=== PATIENT | male | born 1960 | race Caucasian/White ===

== ENCOUNTER 2017-02-13 08:23 | Inpatient (IN) | payer OTHER, SELFPAY ==
[2017-02-04 11:22] LABS: HEMATOCRIT 44.2 % (40.0-51.0); HEMOGLOBIN 14.9 g/dL (13.6-17.8)
[2017-02-04 11:30] LABS: ASCORBIC ACID (UR NOT ORDER) NEG (NEG); BILIRUBIN, URINE NEGATIVE (NEG); KETONE, URINE NEGATIVE (NEG); LEUKOCYTE ESTERASE(NOT OR NEG (NEG); WBC (NOT ORDERED) (RFLEX) 1 (0-5)
[2017-02-04 11:35] LABS: CALCIUM, SERUM 8.3 MG/DL (8.5-10.4); CHLORIDE, SERUM 108 MMOL/L (96-112); CO2 (CARBON DIOXIDE) 29 MMOL/L (24-34); CREATININE 0.78 MG/DL (0.70-1.30); GFR AFRICAN AMERICAN 116 ML/MIN (>=60); GFR NON AFRICAN AMERICAN 100 ML/MIN (>=60); GLUCOSE, SERUM 89 MG/DL (60-99); SODIUM, SERUM 143 MMOL/L (135-148)
[2017-02-04 11:36] LABS: BUN (BLOOD UREA NITROGEN) 10 MG/DL (6-23)
--- NOTE | ~2017-02-13 | OP ---
Record Of Operation [facility] [address] [place]. [address] NAME: SANDRA MESA : 58 STATUS : ADM IN PAT#: [id number] AGE: 56 ADM/REG DATE : 02/13/17 MR#: [id number] REPORT SERV DATE: 02/13/17 DICTATED BY: OFELIA MARTINEZ DATE: 02/13/17 REPORT STATUS : Draft TRANSCRIBED BY: MODL DATE: 02/13/17 DATE OF PROCEDURE: 02/13/2017 SURGEON: Ofelia Martinez MD TITLE OF OPERATION: Robot-assisted laparoscopic simple prostatectomy. PREOPERATIVE DIAGNOSIS: Benign prostatic hyperplasia with obstruction. POSTOPERATIVE DIAGNOSIS: Benign prostatic hyperplasia with obstruction. INDICATIONS: Mr. Mesa is a 56-year-old male, with a massively enlarged prostate greater than 100 g. He has symptomatic BPH. He is here for simple prostatectomy. ANESTHESIA: General. COMPLICATIONS: None. IMPLANTS: 1. 24-Romanian 3-way Maria catheter. 2. #10 DINORA drain. SPECIMENS: Prostate adenoma for analysis. NARRATIVE: The patient was brought to the operating room, identified by his wristband. General anesthesia was induced and Ancef was given for preoperative antibiotics. He was placed in dorsal lithotomy position, and prepped and draped in sterile fashion. His abdomen was insufflated to a pressure of 15 mmHg using a Veress needle. A 5 mm port was placed in a supraumbilical position under direct vision. The abdomen was inspected. There were no adhesions or abnormalities. Two 5 mm ports were placed in the left side of the body, and a third 4 to 5 mm port was placed in the right side of the body. A 12 mm port was placed in the right lower quadrant. A 5 mm port was placed in the right upper quadrant for sales support assistant ports. The patient was placed in Trendelenburg. The robot was docked. I dropped the bladder off the anterior abdominal wall using electrocautery. The prostate was sharply divided with bipolar cautery and scissors. A horizontal cystotomy was made in the bladder. A large intravesical prostatic adenoma was identified. A 2-0 Vicryl was placed through this adenoma as a marking stitch. The mucosa was scored above the trigone on the adenoma through the detrusor muscle onto the prostatic tissue. The dissection was carried down to the junction of the peripheral and transitional zones. This was then carried from the base of the prostate down to the apex. The prostatic adenoma was then circumferentially dissected free from the capsule laterally and anteriorly. The urethra was identified and sharply incised. The adenoma was then removed from the capsule and placed into an EndoCatch bag. Small bleeders were controlled with electrocautery. Using a 3-0 V-Loc suture, the bladder mucosa was advanced into the prostatic fossa. A second 3-0 V-Loc suture was used to oversew the dorsal venous penetrators on the anterior surface of the capsule. A 24-Romanian 3-way Maria catheter was placed into the bladder. The cystotomy was closed in two layers. The Record Of Operation [facility] [address] [place]. [address] NAME: SANDRA MESA : 58 STATUS : ADM IN [facility]#: [id number] AGE: 56 ADM/REG DATE : 02/13/17 MR#: [id number] REPORT SERV DATE: 02/13/17 DICTATED BY: OFELIA MARTINEZ DATE: 02/13/17 REPORT STATUS : Draft TRANSCRIBED BY: DIPIKA DATE: 02/13/17 first layer was with a 3-0 V-Loc suture, the second layer with a 2-0 V-Loc suture. 40 mL were placed in the Maria balloon. The bladder was irrigated. There was no leakage. The catheter was placed on traction and CBI was initiated. The robot was undocked. The ports were removed sequentially. The sales support assistant port was closed with 0 Vicryl suture using a Bear-Ivan device. A #10 DINORA drain was placed through the lateral most left robotic port. The skin and fascia were incised on the supraumbilical port. The prostatic adenoma and the EndoCatch bag was removed from the body and sent to Pathology. The fascia was closed with an interrupted 0 Monocryl suture in a [id number] fashion. The wounds were irrigated clear. The subcutaneous tissues were closed with interrupted 3-0 Vicryl suture. The skin was closed with 4-0 Monocryl suture. Dermabond dressing was placed. A TAP block was placed preoperatively. The patient was then transferred to the recovery room in stable condition. There were no complications. EDUARDO/DIPIKA Ofelia Martinez MD / [id number] CC: MD ROBERTO Fleming PAUL E
--- NOTE | ~2017-02-13 | DS ---
Discharge Summary [facility] [address] [place]. [address] NAME: SANDRA MESA : 58 STATUS : DIS IN PAT#: [id number] AGE: 56 ADM/REG DATE : 02/13/17 MR#: [id number] REPORT SERV DATE: 03/01/17 DICTATED BY: OFELIA MARTINEZ DATE: 02/28/17 REPORT STATUS : Draft TRANSCRIBED BY: MODL DATE: 02/28/17 ADMISSION DATE: 02/13/2017 DISCHARGE DATE: 02/21/2017 DISCHARGE DIAGNOSES: 1. Benign prostatic hypertrophy with obstruction. 2. History of mechanical heart valve. PROCEDURE: Robot-assisted laparoscopic simple prostatectomy. HOSPITAL COURSE: Mr. Mesa is a very pleasant 56-year-old male with BPH with obstruction and prostate greater than 100 g. On the day of admission, he underwent the above-mentioned operation. The operation was tolerated well with no major complications. For full details, see my operative note. Postoperatively, he was transferred to the recovery room and to the floor in stable condition. During his hospitalization, he remained afebrile and his vital signs remained within normal limits. His urine was initially red and he was maintained on CBI. This was weaned to clear. A heparin drip was started on him for his mechanical heart valve on postoperative day #2, as was Coumadin. He was kept in the hospital with heparin and Coumadin until his Coumadin level was therapeutic. The Maria catheter was removed. He was able to void. His urine was pink. He was then deemed medically fit for home, was discharged to home. Prior to discharging home, his pain was well controlled and he had a bowel movement. DISCHARGE MEDICATIONS: Please see discharge medication worksheet. DISCHARGE INSTRUCTIONS: Please see my preprinted discharge instructions. FOLLOWUP: Please follow up with me next week for an INR check. EDUARDO/DIPIKA Ofelia Martinez MD / [id number] CC: MD ROBERTO Fleming PAUL E
--- NOTE | ~2017-02-13 | HP ---
History And Physical [facility] [id number] [place]. [address] NAME: SANDRA MESA : 58 STATUS : DIS IN [facility]#: [id number] AGE: 56 ADM/REG DATE : 02/13/17 MR#: [id number] REPORT SERV DATE: 02/28/17 DICTATED BY: OFELIA MARTINEZ DATE: 02/28/17 REPORT STATUS : Draft TRANSCRIBED BY: MODL DATE: 02/28/17 DATE OF ADMISSION: 02/13/2017 CHIEF COMPLAINT: Obstructive lower urinary tract symptoms. HISTORY OF PRESENT ILLNESS: Mr. Mesa is a very pleasant 56-year-old male with a history of BPH with obstruction with a very enlarged prostate with large intravesical portion. He underwent cystoscopy in the clinic and was found to have a very large intravesical portion of his prostate. I then saw him and recommended a robotic-assisted laparoscopic simple prostatectomy. He presented to the hospital today for this operation. PAST MEDICAL HISTORY: Hypertension, hypercholesterolemia, history of stroke, history of mechanical heart valve. PAST SURGICAL HISTORY: Placement of mechanical heart valve. FAMILY HISTORY: Positive for kidney stones. SOCIAL HISTORY: He is a social drinker. He does not smoke or use illegal drugs. ALLERGIES: PENICILLIN. MEDICATIONS: Reviewed and listed in the chart. REVIEW OF SYSTEMS: A 12-point review of systems was performed. Pertinent positives listed in the HPI. PHYSICAL EXAMINATION: VITAL SIGNS: He is afebrile. His vital are signs stable. He is in no acute distress. HEENT: Head is normocephalic and atraumatic. His breathing is nonlabored. He is not in respiratory distress. Pulse is regular in rate and rhythm. ABDOMEN: Soft, nontender, nondistended. He has no CVA tenderness. Normal external genitalia. NEURO: He is alert and oriented x3. LABORATORY DATA: No new labs. IMAGING: No new imaging. ASSESSMENT AND PLAN: Mr. Mesa has benign prostatic hyperplasia with obstruction and a prostate greater than 100 g. He is here for robotic prostatectomy. He also has a mechanical heart valve. He will need to be anticoagulated in the hospital after the procedure. We will proceed with the procedure as planned. History And Physical [facility] [id number] [place]. [address] NAME: SANDRA MESA : 58 STATUS : DIS IN PAT#: [id number] AGE: 56 ADM/REG DATE : 02/13/17 MR#: [id number] REPORT SERV DATE: 02/28/17 DICTATED BY: OFELIA MARTINEZ DATE: 02/28/17 REPORT STATUS : Draft TRANSCRIBED BY: DIPIKA DATE: 02/28/17 EDUARDO/DIPIKA Ofelia Martinez MD / [id number] CC: MD Darrel Fleming
[~2017-02-13 08:23] MED LIST: COUMADIN7.5 MG PO; FLOMAX4 PO; LOP25 PO; PRAVACHOL40 MG PO
[2017-02-13 08:53] LABS: INTERNATIONAL NORMAL RATI 1.1 UNITS (-); PROTIME (NOT ORD) 14.2 SEC (12.0-14.5)
[2017-02-13 14:09] LABS: BASOPHILS 0.1 %; BASOPHILS ABSOLUTE 0.01 10/3/uL (0.0-0.16); EOSINOPHILS 0 %; HEMATOCRIT 42.3 % (40.0-51.0); HEMOGLOBIN 14.5 g/dL (13.6-17.8); IMMATURE GRANULOCYTES 0.1 %; IMMATURE GRANULOCYTES ABSOLUTE 0.01 10/3/uL (0.0-0.11); LYMPHOCYTES 5.2 %; LYMPHOCYTES ABSOLUTE 0.45 10/3/uL (0.67-4.30); MANUAL DIFF NO %; MEAN CORPUS HGB CONC 34.3 g/dL (32.0-36.0); MEAN CORPUSCULAR VOLUME 87.4 fL (80-100); MEAN PLATELET VOLUME 9.6 fL (9.2-13.0); MONOCYTES 1.2 %; NEUTROPHILS 93.4 %; NEUTROPHILS ABSOLUTE 8.06 10/3/uL (2.02-8.40); PLATELET COUNT 137 10/3/uL (150-400); RBC DISTRIBUTION WIDTH 13.1 % (12.0-16.0); RED CELL COUNT 4.84 10/6/uL (4.7-6.1); WHITE BLOOD CELLS 8.6 10/3/uL (4.5-10.5)
[2017-02-13 14:21] LABS: BUN (BLOOD UREA NITROGEN) 13 MG/DL (6-23); CALCIUM, SERUM 8.1 MG/DL (8.5-10.4); CHLORIDE, SERUM 104 MMOL/L (96-112); CO2 (CARBON DIOXIDE) 27 MMOL/L (24-34); CREATININE 0.98 MG/DL (0.70-1.30); GFR AFRICAN AMERICAN 99 ML/MIN (>=60); GFR NON AFRICAN AMERICAN 85 ML/MIN (>=60); POTASSIUM, SERUM 4.1 MMOL/L (3.5-5.3); SODIUM, SERUM 139 MMOL/L (135-148)
[2017-02-13 14:22] LABS: GLUCOSE, SERUM 140 MG/DL (60-99)
[2017-02-14 05:01] LABS: BASOPHILS 0.1 %; BASOPHILS ABSOLUTE 0.01 10/3/uL (0.0-0.16); EOSINOPHILS 0.1 %; EOSINOPHILS ABSOLUTE 0.01 10/3/uL (0.0-0.53); HEMATOCRIT 38.3 % (40.0-51.0); HEMOGLOBIN 13.2 g/dL (13.6-17.8); IMMATURE GRANULOCYTES 0.1 %; IMMATURE GRANULOCYTES ABSOLUTE 0.01 10/3/uL (0.0-0.11); LYMPHOCYTES 10.4 %; LYMPHOCYTES ABSOLUTE 1.13 10/3/uL (0.67-4.30); MEAN CORPUS HGB CONC 34.5 g/dL (32.0-36.0); MEAN CORPUSCULAR HEMOGLOB 29.9 pg (26.0-34.0); MEAN CORPUSCULAR VOLUME 86.8 fL (80-100); MEAN PLATELET VOLUME 9.6 fL (9.2-13.0); MONOCYTES 10.1 %; NEUTROPHILS 79.2 %; NEUTROPHILS ABSOLUTE 8.64 10/3/uL (2.02-8.40); PLATELET COUNT 178 10/3/uL (150-400); RBC DISTRIBUTION WIDTH 13.6 % (12.0-16.0); RED CELL COUNT 4.41 10/6/uL (4.7-6.1); WHITE BLOOD CELLS 10.9 10/3/uL (4.5-10.5)
[2017-02-14 05:08] LABS: MANUAL DIFF NO %
[2017-02-14 05:15] LABS: CALCIUM, SERUM 8.3 MG/DL (8.5-10.4); CHLORIDE, SERUM 107 MMOL/L (96-112); CO2 (CARBON DIOXIDE) 30 MMOL/L (24-34); CREATININE 0.85 MG/DL (0.70-1.30); GFR AFRICAN AMERICAN 112 ML/MIN (>=60); GFR NON AFRICAN AMERICAN 97 ML/MIN (>=60); GLUCOSE, SERUM 132 MG/DL (60-99); POTASSIUM, SERUM 4.5 MMOL/L (3.5-5.3); SODIUM, SERUM 144 MMOL/L (135-148)
[2017-02-14 05:22] LABS: BUN (BLOOD UREA NITROGEN) 9 MG/DL (6-23)
[2017-02-16 09:30] LABS: INTERNATIONAL NORMAL RATI 1.1 UNITS (-); PARTIAL THROMBO TIME 27.2 SEC (22.5-37.2); PROTIME (NOT ORD) 13.8 SEC (12.0-14.5)
[2017-02-17 01:54] LABS: BASOPHILS 0.5 %; BASOPHILS ABSOLUTE 0.05 10/3/uL (0.0-0.16); EOSINOPHILS 2.5 %; EOSINOPHILS ABSOLUTE 0.23 10/3/uL (0.0-0.53); HEMATOCRIT 33.9 % (40.0-51.0); HEMOGLOBIN 11.7 g/dL (13.6-17.8); IMMATURE GRANULOCYTES 0.4 %; IMMATURE GRANULOCYTES ABSOLUTE 0.04 10/3/uL (0.0-0.11); LYMPHOCYTES 19.5 %; LYMPHOCYTES ABSOLUTE 1.78 10/3/uL (0.67-4.30); MANUAL DIFF NO %; MEAN CORPUS HGB CONC 34.5 g/dL (32.0-36.0); MEAN CORPUSCULAR HEMOGLOB 30.2 pg (26.0-34.0); MEAN CORPUSCULAR VOLUME 87.6 fL (80-100); MEAN PLATELET VOLUME 9.9 fL (9.2-13.0); MONOCYTES 11.4 %; MONOCYTES ABSOLUTE 1.04 10/3/uL (0.21-1.20); NEUTROPHILS 65.7 %; PLATELET COUNT 170 10/3/uL (150-400); RBC DISTRIBUTION WIDTH 13.6 % (12.0-16.0); RED CELL COUNT 3.87 10/6/uL (4.7-6.1); WHITE BLOOD CELLS 9.1 10/3/uL (4.5-10.5)
[2017-02-17 01:55] LABS: CALCIUM, SERUM 8.4 MG/DL (8.5-10.4); CHLORIDE, SERUM 104 MMOL/L (96-112); CO2 (CARBON DIOXIDE) 29 MMOL/L (24-34); CREATININE 0.83 MG/DL (0.70-1.30); GFR AFRICAN AMERICAN 113 ML/MIN (>=60); GFR NON AFRICAN AMERICAN 98 ML/MIN (>=60); SODIUM, SERUM 143 MMOL/L (135-148)
[2017-02-17 01:56] LABS: BUN (BLOOD UREA NITROGEN) 14 MG/DL (6-23); GLUCOSE, SERUM 98 MG/DL (60-99)
[2017-02-18 06:09] LABS: INTERNATIONAL NORMAL RATI 1.1 UNITS (-); PROTIME (NOT ORD) 14.5 SEC (12.0-14.5)
[2017-02-19 08:08] LABS: BASOPHILS 0.5 %; BASOPHILS ABSOLUTE 0.04 10/3/uL (0.0-0.16); EOSINOPHILS 2.5 %; EOSINOPHILS ABSOLUTE 0.19 10/3/uL (0.0-0.53); HEMATOCRIT 31.5 % (40.0-51.0); IMMATURE GRANULOCYTES 0.4 %; IMMATURE GRANULOCYTES ABSOLUTE 0.03 10/3/uL (0.0-0.11); LYMPHOCYTES 16.3 %; LYMPHOCYTES ABSOLUTE 1.24 10/3/uL (0.67-4.30); MANUAL DIFF NO %; MEAN CORPUS HGB CONC 34.9 g/dL (32.0-36.0); MEAN CORPUSCULAR HEMOGLOB 30.2 pg (26.0-34.0); MEAN CORPUSCULAR VOLUME 86.5 fL (80-100); MEAN PLATELET VOLUME 9.6 fL (9.2-13.0); MONOCYTES 11.2 %; MONOCYTES ABSOLUTE 0.85 10/3/uL (0.21-1.20); NEUTROPHILS 69.1 %; NEUTROPHILS ABSOLUTE 5.25 10/3/uL (2.02-8.40); PLATELET COUNT 174 10/3/uL (150-400); RED CELL COUNT 3.64 10/6/uL (4.7-6.1); WHITE BLOOD CELLS 7.6 10/3/uL (4.5-10.5)
[2017-02-19 08:16] LABS: BUN (BLOOD UREA NITROGEN) 16 MG/DL (6-23); CALCIUM, SERUM 7.9 MG/DL (8.5-10.4); CHLORIDE, SERUM 103 MMOL/L (96-112); CO2 (CARBON DIOXIDE) 30 MMOL/L (24-34); GFR AFRICAN AMERICAN 121 ML/MIN (>=60); GFR NON AFRICAN AMERICAN 105 ML/MIN (>=60); GLUCOSE, SERUM 100 MG/DL (60-99); POTASSIUM, SERUM 3.5 MMOL/L (3.5-5.3); SODIUM, SERUM 140 MMOL/L (135-148)
[2017-02-19 09:11] LABS: INTERNATIONAL NORMAL RATI 1.1 UNITS (-); PROTIME (NOT ORD) 14.2 SEC (12.0-14.5)
[2017-02-19 09:13] LABS: PARTIAL THROMBO TIME 84.1 SEC (22.5-37.2)
[2017-02-20 04:06] LABS: INTERNATIONAL NORMAL RATI 1.1 UNITS (-); PROTIME (NOT ORD) 14.3 SEC (12.0-14.5)
[2017-02-20 04:08] LABS: PARTIAL THROMBO TIME 100.6 SEC (22.5-37.2)
[2017-02-21 06:43] LABS: INTERNATIONAL NORMAL RATI 1.2 UNITS (-); PROTIME (NOT ORD) 15.4 SEC (12.0-14.5)
[2017-02-21] MEDS ORDERED: PCET PO (09:45)
[2017-02-21] MEDS ORDERED: DSS PO (09:45)
[2017-02-21] MEDS ORDERED: LOVENOX80 SC (09:46)
== END 2017-02-21 12:26 | disposition home or self-care (01) | DRG 707 ==
LOC: SDC/OF 08:23 → 4SO 15:06
PROVIDERS: Urology
PROC: 0VT04ZZ Resection of Prostate, Percutaneous Endoscopic Approach (ICD-10-PCS; principal; 2017-02-13 10:30)
PROC: 8E0W4CZ Robotic Assisted Procedure of Trunk Region, Percutaneous Endoscopic Approach (ICD-10-PCS; principal; 2017-02-13 10:30)
DX: N40.1 Benign prostatic hyperplasia with lower urinary tract symptoms (principal); N13.8 Other obstructive and reflux uropathy; I10 Essential (primary) hypertension; Z95.2 Presence of prosthetic heart valve; Z79.01 Long term (current) use of anticoagulants; Z86.73 Personal history of transient ischemic attack (TIA), and cerebral infarction without residual deficits; Z87.891 Personal history of nicotine dependence; Z87.442 Personal history of urinary calculi
CPT/HCPCS: 36415; 80048; 81001; 82570; 85014; 85018; 85025; 85610; 85730; 86850; 86900; 86901; 88307; 93005; A9270-GY; J0690; J2250; J2270; J2405; J2710; J2795; J3010